=== PATIENT | male | born 1995 | race African-American/Black ===

== ENCOUNTER 2017-08-30 14:20 | Emergency (ER) | payer OTHER ==
[~2017-08-30] VITALS: Ht 180.3 cm; Wt 72.6 kg
[~2017-08-30 14:20] MED LIST: ACYCLOVIR400 MG ORAL; DOXYCYCLINE MO100 MG ORAL; IBUPROFEN600 MG ORAL
[2017-08-30 14:49] VITALS: BP 110/71
--- NOTE | 2017-08-30 14:55 | Emergency Room Report ---
History of Present Illness General Chief Complaint: Medical Clearance Source: Patient, EMS Present Illness HPI 22-year-old male, history of psychiatric illness, on Risperdal, brought in with law enforcement for suicide attempt. Patient was arrested at his home, was brought back to the senior care, patient attempted to hang himself with his shirt. Police state that he was stopped immediately. Patient currently awake alert oriented 4, when asked about suicidal etiology ideation he remains quiet. Denies any hearing voices. States that he has not taken his medications for 2 days Allergies: Coded Allergies: No Known Allergies (Unverified , 07/15/17) Patient History Past Medical History: see triage record Past Surgical History: none Pertinent Family History: none Reviewed Nursing Documentation: PMH: Agreed, PSxH: Agreed Nursing Documentation-PMH Past Medical History: No History, Except For History Of Psychiatric Problem: Yes - schizophrenia, bipolar Review of Systems All Other Systems: negative except mentioned in HPI Physical Exam Vital Signs Date Time Temp Pulse Resp B/P (MAP) Pulse Ox O2 Delivery O2 Flow Rate FiO2 08/30/17 14:17 98.4 80 18 110/71 100 Room Air 98.4 Sp02 EP Interpretation: reviewed, normal General Appearance: alert, GCS 15, mild distress Head: normocephalic, atraumatic Eyes: bilateral eye normal inspection, bilateral eye PERRL, bilateral eye EOMI ENT: normal ENT inspection, normal pharynx, normal voice, moist mucus membranes Neck: normal inspection, full range of motion, supple Respiratory: normal inspection, lungs clear, normal breath sounds, no respiratory distress, no retraction, no wheezing, speaking full sentences, chest symmetrical Cardiovascular #1: normal inspection, regular rate, rhythm, normal capillary refill Cardiovascular #2: 2+ radial (R), 2+ radial (L) Gastrointestinal: normal inspection, non tender, soft, non-distended, no guarding Genitourinary: no CVA tenderness Musculoskeletal: normal inspection, back normal, normal range of motion, non- tender Neurologic: normal inspection, alert, oriented x3, responsive, insurance claim representative III-XII nml as tested, motor strength/tone normal, sensory intact, normal gait, speech normal Psychiatric: depressed affect, other - POSSIBLE SI. no AH Skin: normal inspection, normal color, no rash, warm/dry, well hydrated, normal turgor Medical Decision Making Diagnostic Impression: Primary Impression: Behavioral change ER Course 22-year-old male with suicidal behavior, in custody DDX: Suicidal behavior Plan: None in the emergency room ER course: Patient has remained stable during ED stay. He has been calm and cooperative Disposition: Patient is to be discharged to law enforcement Due to patient's suicidal behavior, patient will be discharged to law enforcement at [facility] which has full psychiatric staff to care for patient Please note that this Emergency Department Report was dictated using [email or web address] teacher technology software, occasionally this can lead to erroneous entry secondary to interpretation by the dictation equipment Last Vital Signs Date Time Temp Pulse Resp B/P (MAP) Pulse Ox O2 Delivery O2 Flow Rate FiO2 08/30/17 14:49 98.4 18 110/71 100 Room Air 98.4 08/30/17 14:17 80 Disposition: HOME, SELF-CARE Condition: Improved Referrals: NOT CHOSEN IPA/,REFERRING (PCP) Departure Forms: Halfway Clearance Patient Instructions: Self-Destructive Behavior Sergey Xiao M.D. Aug 30, 2017 14:55
[2017-08-30] MEDS ORDERED: RISPERDAL2 MG ORAL (15:04)
== END 2017-08-30 15:05 ==
LOC: EDBD 14:20 → EMR 14:44
DX: F91.9 Conduct disorder, unspecified (principal); R45.851 Suicidal ideations; F31.9 Bipolar disorder, unspecified; F20.9 Schizophrenia, unspecified
CPT/HCPCS: 99283